=== PATIENT | female | born 1945 | race Hispanic/Latino ===

== ENCOUNTER → 2018-01-05 | Outpatient (CLI) | payer OTHER | END | disposition home or self-care (01) | LOC: RAH 09:48 | PROVIDERS: ATTEND Family Medicine | DX: Z12.31 Encounter for screening mammogram for malignant neoplasm of breast (principal) | CPT/HCPCS: 77067 ==

== ENCOUNTER → 2018-03-13 | Outpatient (CLI) | payer OTHER | END | disposition home or self-care (01) | LOC: RAH 09:27 | PROVIDERS: ATTEND Family Medicine | DX: N63.20 Unspecified lump in the left breast, unspecified quadrant (principal); R92.8 Other abnormal and inconclusive findings on diagnostic imaging of breast | CPT/HCPCS: 76641; 77065 ==

== ENCOUNTER → 2018-10-01 | Outpatient (CLI) | payer OTHER | END | disposition home or self-care (01) | LOC: SHCH 14:15 | PROVIDERS: ATTEND Internal Medicine Cardiovascular Disease | DX: I25.10 Atherosclerotic heart disease of native coronary artery without angina pectoris (principal) | CPT/HCPCS: 93880 ==

== ENCOUNTER → 2019-03-18 | Outpatient (CLI) | payer OTHER | END | disposition home or self-care (01) | LOC: EDBD 10:18 → RAH 10:18 | PROVIDERS: ATTEND Family Medicine | DX: Z12.31 Encounter for screening mammogram for malignant neoplasm of breast (principal) | CPT/HCPCS: 77067 ==

== ENCOUNTER → 2019-08-21 | Outpatient (CLI) | payer OTHER | END | disposition home or self-care (01) | LOC: EDBD 08-13 14:00 → RAH 12:52 | PROVIDERS: ATTEND Family Medicine | DX: R94.39 Abnormal result of other cardiovascular function study (principal) | CPT/HCPCS: 93925 ==

== ENCOUNTER 2020-01-31 20:10 | Emergency (ER) | payer OTHER ==
[2020-01-31 20:36] LABS: BASOPHILS % (AUTO) 0.3 % (0.0-5.0); EOSINOPHILS % (AUTO) 0.6 % (0.0-8.0); HEMATOCRIT 35.8 % (36-48); LYMPHOCYTES % (AUTO) 32.2 % (21.0-51.0); MEAN CORPUSCULAR HEMOGLOBIN 28.9 pg (27.0-33.0); MEAN CORPUSCULAR HGB CONC 32.4 g/dL (32.0-36.0); MEAN CORPUSCULAR VOLUME 89.3 fL (79-99); NEUTROPHILS % (AUTO) 56.6 % (40.0-77.0); PLATELET COUNT (AUTO) 287 K/uL (130-400); RED BLOOD CELL COUNT(AUTO) 4.01 MIL/uL (4.00-5.50); RED CELL DISTRIBUTION WIDTH 13.2 % (11.0-15.5); WHITE BLOOD COUNT (AUTO) 6.5 K/uL (4.8-10.8)
[2020-01-31 20:58] LABS: CREATININE 1.4 mg/dL (0.5-1.5); POTASSIUM 3.5 mmol/L (3.5-5.1)
[2020-01-31 21:05] LABS: ALBUMIN 4.3 g/dL (3.5-5.0); BILIRUBIN,TOTAL 0.3 mg/dL (0.2-1.0); TOTAL PROTEIN, SERUM 8.7 g/dL (6.0-8.3)
[2020-01-31] MEDS ORDERED: LORAZEPAM 2 MG/ML 1 ML VIAL ONE (22:04)
== END 2020-01-31 23:46 | disposition home or self-care (01) ==
LOC: EDH 20:10
DX: I10 Essential (primary) hypertension (principal); R53.1 Weakness; E11.9 Type 2 diabetes mellitus without complications; I48.91 Unspecified atrial fibrillation; F32.9 Major depressive disorder, single episode, unspecified; Z95.1 Presence of aortocoronary bypass graft; Z79.899 Other long term (current) drug therapy; Z98.890 Other specified postprocedural states
CPT/HCPCS: 36415; 71045; 80053; 82550; 82948; 84484; 85025; 93005; 96374; 99285; J2060

== ENCOUNTER 2020-02-07 02:42 | Emergency (ER) | payer OTHER ==
[2020-02-07] MEDS ORDERED: METOPROLOL TARTRATE 25 MG TAB ONE (03:35)
[2020-02-07] MEDS ORDERED: SODIUM CHLORIDE 0.9% 500ML 500 ML IV ONE (03:36)
[2020-02-07 04:14] LABS: ALBUMIN 4.1 g/dL (3.5-5.0); BASOPHILS % (AUTO) 0.3 % (0.0-5.0); BILIRUBIN,TOTAL 0.4 mg/dL (0.2-1.0); CREATININE 1.1 mg/dL (0.5-1.5); EOSINOPHILS % (AUTO) 0.7 % (0.0-8.0); HEMATOCRIT 36.9 % (36-48); MEAN CORPUSCULAR HEMOGLOBIN 29.6 pg (27.0-33.0); MEAN CORPUSCULAR HGB CONC 33.6 g/dL (32.0-36.0); MEAN CORPUSCULAR VOLUME 88.1 fL (79-99); MONOCYTES % (AUTO) 7.4 % (3.0-13.0); NEUTROPHILS % (AUTO) 61.5 % (40.0-77.0); PLATELET COUNT (AUTO) 305 K/uL (130-400); POTASSIUM 3.8 mmol/L (3.5-5.1); RED BLOOD CELL COUNT(AUTO) 4.19 MIL/uL (4.00-5.50); RED CELL DISTRIBUTION WIDTH 13.2 % (11.0-15.5); TOTAL PROTEIN, SERUM 8.6 g/dL (6.0-8.3)
[2020-02-07 04:15] LABS: APPEARANCE,URINE Clear (CLEAR); B-TYPE NATRIURETIC PEPTIDE 184 pg/mL (0-100); BILIRUBIN,URINE Negative (NEGATIVE); COLOR,URINE Yellow (YELLOW); GLUCOSE, URINE (UA) Negative (NEGATIVE); KETONES,URINE Negative (NEGATIVE); LEUKOCYTE ESTERASE ,URINE Negative (NEGATIVE); MAGNESIUM 2.5 mg/dL (1.80-2.40); NITRATE,URINE Negative (NEGATIVE); OCCULT BLOOD,URINE Negative (NEGATIVE); PH,URINE 6.5 (5.0-8.0); PROTEIN,URINE Negative (NEGATIVE); THYROID STIMULATING HORMONE 3.84 uIU/mL (0.36-3.74); UROBILINOGEN,URINE 0.2 mg/dL (0.2-1.0)
[2020-02-07 04:28] LABS: PARTIAL THROMBOPLASTIN TIME 49.5 SEC (26.3-35.5)
[2020-02-07 04:30] LABS: INR 4.26 (0.85-1.15); PROTHROMBIN TIME 41.9 SEC (9.6-11.6)
== END 2020-02-07 05:11 | disposition home or self-care (01) ==
LOC: EDH 02:42
DX: R00.2 Palpitations (principal); I48.91 Unspecified atrial fibrillation; F32.9 Major depressive disorder, single episode, unspecified; I10 Essential (primary) hypertension; E11.9 Type 2 diabetes mellitus without complications; I25.810 Atherosclerosis of coronary artery bypass graft(s) without angina pectoris; E78.00 Pure hypercholesterolemia, unspecified; I25.2 Old myocardial infarction
CPT/HCPCS: 36415; 71045; 80053; 81003; 82550; 83735; 83880; 84443; 84484; 85025; 85610; 85730; 93005; 99285; J7040

== ENCOUNTER → 2020-02-27 | Outpatient (CLI) | payer OTHER | END | disposition home or self-care (01) | LOC: SHCH 10:26 | PROVIDERS: ATTEND Internal Medicine Cardiovascular Disease | DX: I65.23 Occlusion and stenosis of bilateral carotid arteries (principal) | CPT/HCPCS: 93880 ==

== ENCOUNTER → 2020-08-17 | Outpatient (CLI) | payer OTHER | END | disposition home or self-care (01) | LOC: RAH 12:14 | PROVIDERS: ATTEND Family Medicine | DX: Z12.31 Encounter for screening mammogram for malignant neoplasm of breast (principal) | CPT/HCPCS: 77067 ==

== ENCOUNTER → 2021-02-11 | Outpatient (CLI) | payer OTHER | END | disposition home or self-care (01) | LOC: SHCH 09:11 | PROVIDERS: ATTEND Internal Medicine Cardiovascular Disease | DX: I25.10 Atherosclerotic heart disease of native coronary artery without angina pectoris (principal) | CPT/HCPCS: 93880 ==

== ENCOUNTER 2021-09-12 23:59 | Observation (INO) | payer OTHER ==
[~2021-09-12] VITALS: Ht 157.5 cm; Wt 52.4 kg
[2021-09-13] MEDS ORDERED: ASPIRIN 325MG TAB ONE (00:48)
[2021-09-13] MEDS ORDERED: LORAZEPAM 2 MG/ML 1 ML VIAL ONE (00:49)
[2021-09-13] MEDS ORDERED: ASPIRIN 325MG TAB PO ONE (01:00)
[2021-09-13] MEDS ORDERED: LORAZEPAM 2 MG/ML 1 ML VIAL IVP ONE (01:00)
[2021-09-13 01:18] LABS: BASOPHILS % (AUTO) 0.4 % (0.0-5.0); EOSINOPHILS % (AUTO) 0.8 % (0.0-8.0); HEMATOCRIT 35.9 % (36-48); LYMPHOCYTES % (AUTO) 31.4 % (21.0-51.0); MEAN CORPUSCULAR HEMOGLOBIN 30.4 pg (27.0-33.0); MEAN CORPUSCULAR HGB CONC 33.7 g/dL (32.0-36.0); MEAN CORPUSCULAR VOLUME 90.2 fL (79-99); MONOCYTES % (AUTO) 10.4 % (3.0-13.0); NEUTROPHILS % (AUTO) 56.7 % (40.0-77.0); PLATELET COUNT (AUTO) 211 K/uL (130-400); RED BLOOD CELL COUNT(AUTO) 3.98 MIL/uL (4.00-5.50); RED CELL DISTRIBUTION WIDTH 12.9 % (11.0-15.5); WHITE BLOOD COUNT (AUTO) 7.3 K/uL (4.8-10.8)
[2021-09-13 01:37] LABS: CREATININE 1.6 mg/dL (0.5-1.5); POTASSIUM 3.4 mmol/L (3.5-5.1)
[2021-09-13 01:47] LABS: ALBUMIN 4.5 g/dL (3.5-5.0); BILIRUBIN,TOTAL 0.5 mg/dL (0.2-1.0); TOTAL PROTEIN, SERUM 8.5 g/dL (6.0-8.3)
[2021-09-13 02:09] LABS: B-TYPE NATRIURETIC PEPTIDE 167 pg/mL (0-100)
[2021-09-13] MEDS ORDERED: LACTULOSE 20 GM/30 ML UDCUP PO PRN (04:00)
[2021-09-13] MEDS ORDERED: POTASSIUM CHLORIDE 20MEQ/100ML 100 ML IV PRN (04:00)
[2021-09-13] MEDS ORDERED: MORPHINE 2 MG SYG IV PRN (04:00)
[2021-09-13] MEDS ORDERED: KCL 20 MEQ ERTAB PO PRN (04:00)
[2021-09-13] MEDS ORDERED: LIDOCAINE HCL-MPF 1% 2ML VIAL IV PRN (04:00)
[2021-09-13] MEDS ORDERED: HEPARIN 25,000 UNITS/250ML D5W 250 ML IV SCH (04:00)
[2021-09-13] MEDS ORDERED: ONDANSETRON 4MG INJ IV PRN (04:00)
[2021-09-13] MEDS ORDERED: POTASSIUM CHLORIDE 10% ELIXIR 20 MEQ/15 ML UDCUP PO PRN (04:00)
[2021-09-13] MEDS ORDERED: HYDRALAZINE 20MG/ML VIAL IV PRN (04:00)
[2021-09-13] MEDS ORDERED: ACETAMINOPHEN 325 MG TAB PO PRN (04:00)
[2021-09-13] MEDS: 0.9%NACL 1000ML 1,000 ML IV SCH ×2 (05:10→13:59)
[2021-09-13] MEDS: NITROGLYCERIN 1GM OINT 1 INCH/1GM TD SCH ×3 (05:10→21:51)
[2021-09-13 05:18] LABS: APPEARANCE,URINE Clear (CLEAR); BILIRUBIN,URINE Negative (NEGATIVE); COLOR,URINE Yellow (YELLOW); GLUCOSE, URINE (UA) Negative (NEGATIVE); KETONES,URINE Trace mg/dL (NEGATIVE); LEUKOCYTE ESTERASE ,URINE Negative (NEGATIVE); NITRATE,URINE Negative (NEGATIVE); OCCULT BLOOD,URINE Negative (NEGATIVE); PROTEIN,URINE Negative (NEGATIVE); UROBILINOGEN,URINE 0.2 mg/dL (0.2-1.0)
[2021-09-13 05:21] LABS: INR 2.56 (0.85-1.15); PROTHROMBIN TIME 25.6 SEC (9.6-11.6)
[2021-09-13 05:24] LABS: AMPHET/METH SCREEN,URINE NEGATIVE (NEGATIVE); BARBITURATE SCREEN, URINE NEGATIVE (NEGATIVE); CANNABINOID SCREEN,URINE NEGATIVE (NEGATIVE); COCAINE SCREEN,URINE NEGATIVE (NEGATIVE); OPIATE SCREEN,URINE NEGATIVE (NEGATIVE); PHENCYCLIDINE SCREEN,URINE NEGATIVE (NEGATIVE)
[2021-09-13 05:24] LABS: HEMOGLOBIN A1C 6.8 % (4.0-6.0)
[2021-09-13 05:48] LABS: % IRON SATURATION 22.2 % (22-44)
[2021-09-13 06:00] LABS: PHOSPHORUS 1.7 mg/dL (2.5-4.9); THYROID STIMULATING HORMONE 6.2 uIU/mL (0.36-3.74)
[2021-09-13 06:33] LABS: BENZODIAZEPINES SCREEN,URINE NEGATIVE (NEGATIVE)
[2021-09-13] MEDS: INSULIN HUMULIN R 100 UNIT/ML 3ML SQ SCH ×4 (07:30→21:00)
[2021-09-13 08:19] LABS: ALBUMIN 3.6 g/dL (3.5-5.0); BILIRUBIN,TOTAL 0.6 mg/dL (0.2-1.0); TOTAL PROTEIN, SERUM 8.1 g/dL (6.0-8.3)
[2021-09-13] MEDS: FAMOTIDINE 20MG TAB PO SCH (08:19)
[2021-09-13] MEDS ORDERED: CLONAZEPAM 0.5 MG TABLET PO PRN (08:30)
[2021-09-13] MEDS ORDERED: ASPIRIN 325MG TAB PO SCH (09:00)
[2021-09-13 09:03] LABS: POTASSIUM 3.6 mmol/L (3.5-5.1)
[2021-09-13 09:16] LABS: ALBUMIN 4.2 g/dL (3.5-5.0); BILIRUBIN,TOTAL 0.5 mg/dL (0.2-1.0); CREATININE 1.6 mg/dL (0.5-1.5); POTASSIUM 3.6 mmol/L (3.5-5.1); TOTAL PROTEIN, SERUM 8.8 g/dL (6.0-8.3)
[2021-09-13 12:54] LABS: INR 2.86 (0.85-1.15); PROTHROMBIN TIME 28.3 SEC (9.6-11.6)
[2021-09-13 13:11] LABS: PARTIAL THROMBOPLASTIN TIME > 139.0 SEC (26.3-35.5)
[2021-09-13] MEDS ORDERED: WARF-57 PO (15:18)
[2021-09-13] MEDS ORDERED: NIFE90TA65 PO (15:18)
[2021-09-13] MEDS ORDERED: CLON1TAB12 PO (15:23)
[2021-09-13] MEDS ORDERED: HYDR-4154 PO (15:23)
[2021-09-13 19:22] LABS: INR 2.83 (0.85-1.15); PROTHROMBIN TIME 28.1 SEC (9.6-11.6)
[2021-09-13 19:44] LABS: PARTIAL THROMBOPLASTIN TIME > 139.0 SEC (26.3-35.5)
[2021-09-13] MEDS: HYDRALAZINE 25MG TABLET PO SCH (19:47)
[2021-09-13] MEDS ORDERED: NIFEDIPINE ER 30 MG TAB PO ONE (19:56)
[2021-09-13] MEDS: NIFEDIPINE ER 30 MG TAB PO SCH (20:02)
[2021-09-13] MEDS ORDERED: HEPARIN 5,000 UNIT VIAL SQ SCH (21:00)
[2021-09-13 23:42] VITALS: BP 174/79
[2021-09-14] MEDS ORDERED: CLONIDINE HCL 0.1 MG TABLET PO PRN
[2021-09-14] MEDS: 0.9%NACL 1000ML 1,000 ML IV SCH ×2 (00:11→10:00)
[2021-09-14 04:24] VITALS: BP 149/76
[2021-09-14] MEDS: NITROGLYCERIN 1GM OINT 1 INCH/1GM TD SCH ×2 (04:26→13:59)
[2021-09-14 04:39] LABS: BASOPHILS % (AUTO) 0.4 % (0.0-5.0); HEMATOCRIT 33.9 % (36-48); LYMPHOCYTES % (AUTO) 20.5 % (21.0-51.0); MEAN CORPUSCULAR HEMOGLOBIN 29.7 pg (27.0-33.0); MEAN CORPUSCULAR HGB CONC 32.7 g/dL (32.0-36.0); MEAN CORPUSCULAR VOLUME 90.6 fL (79-99); MONOCYTES % (AUTO) 9.4 % (3.0-13.0); NEUTROPHILS % (AUTO) 68.5 % (40.0-77.0); PLATELET COUNT (AUTO) 191 K/uL (130-400); RED BLOOD CELL COUNT(AUTO) 3.74 MIL/uL (4.00-5.50); WHITE BLOOD COUNT (AUTO) 5.1 K/uL (4.8-10.8)
[2021-09-14 05:07] LABS: INR 2.59 (0.85-1.15); PROTHROMBIN TIME 25.9 SEC (9.6-11.6)
[2021-09-14 05:08] LABS: PARTIAL THROMBOPLASTIN TIME 53.3 SEC (26.3-35.5)
[2021-09-14 05:29] LABS: ALBUMIN 3.4 g/dL (3.5-5.0); BILIRUBIN,TOTAL 0.4 mg/dL (0.2-1.0); CREATININE 1.1 mg/dL (0.5-1.5); MAGNESIUM 1.9 mg/dL (1.80-2.40); POTASSIUM 3.7 mmol/L (3.5-5.1); TOTAL PROTEIN, SERUM 6.9 g/dL (6.0-8.3)
[2021-09-14] MEDS: INSULIN HUMULIN R 100 UNIT/ML 3ML SQ SCH ×2 (06:20→14:00)
[2021-09-14 08:00] VITALS: BP 133/74
[2021-09-14] MEDS: FAMOTIDINE 20MG TAB PO SCH (08:24)
[2021-09-14] MEDS: HYDRALAZINE 25MG TABLET PO SCH (08:24)
[2021-09-14 10:16] LABS: INR 2.5 (0.85-1.15); PROTHROMBIN TIME 25.1 SEC (9.6-11.6)
[2021-09-14 10:17] LABS: PARTIAL THROMBOPLASTIN TIME 51.3 SEC (26.3-35.5)
[2021-09-14] MEDS: NIFEDIPINE ER 30 MG TAB PO SCH (13:40)
[2021-09-14] MEDS ORDERED: WARFARIN SODIUM 5 MG TAB PO SCH (16:00)
[2021-09-14] MEDS ORDERED: FLU VACC QS2021-22(6MOS UP)/PF 60 MCG/0.5 ML ML IM ONE (16:00)
[2021-09-14] MEDS ORDERED: CLONAZEPAM 1MG TAB PO SCH (17:00)
== END 2021-09-14 17:15 | disposition home or self-care (01) ==
LOC: EDBD → EDH 23:59 → EDHIP 09-13 03:31 → 3CH 09-13 23:18
PROVIDERS: ADMIT Internal Medicine Pulmonary Disease; ATTEND Internal Medicine Pulmonary Disease
DX: F41.9 Anxiety disorder, unspecified (principal); Z20.822 Contact with and (suspected) exposure to COVID-19; I21.4 Non-ST elevation (NSTEMI) myocardial infarction; I12.9 Hypertensive chronic kidney disease with stage 1 through stage 4 chronic kidney disease, or unspecified chronic kidney disease; E11.22 Type 2 diabetes mellitus with diabetic chronic kidney disease; N17.9 Acute kidney failure, unspecified; N18.30 Chronic kidney disease, stage 3 unspecified; I25.10 Atherosclerotic heart disease of native coronary artery without angina pectoris; I48.0 Paroxysmal atrial fibrillation; E78.5 Hyperlipidemia, unspecified; E03.9 Hypothyroidism, unspecified; E78.00 Pure hypercholesterolemia, unspecified; R79.89 Other specified abnormal findings of blood chemistry; E11.65 Type 2 diabetes mellitus with hyperglycemia; I25.2 Old myocardial infarction; I70.1 Atherosclerosis of renal artery; J44.9 Chronic obstructive pulmonary disease, unspecified; Z79.01 Long term (current) use of anticoagulants; Z79.899 Other long term (current) drug therapy; Z86.73 Personal history of transient ischemic attack (TIA), and cerebral infarction without residual deficits; Z95.1 Presence of aortocoronary bypass graft; Z23 Encounter for immunization
CPT/HCPCS: 36415 ×2; 71045; 76770; 80053 ×4; 80061; 80305; 81003; 82550 ×3; 82948 ×4; 83036; 83540; 83550; 83690; 83735; 83874 ×3; 83880; 84100; 84443; 84484 ×3; 85025 ×2; 85378; 85610 ×5; 85730 ×4; 87635; 90471; 93005 ×3; 96361 ×2; 96365; 96372; 96375; 99285; C9803; G0378 ×37; J0360; J1644; J1815; J2060; J7030; Q2035

== ENCOUNTER → 2022-03-23 | Outpatient (CLI) | payer OTHER ==
[~2022-03-23] MED LIST: CLON1TAB12 PO; HYDR-4154 PO; NIFE90TA65 PO; WARF-57 PO
== END | disposition home or self-care (01) ==
LOC: EDBD → SHCH 10:03
PROVIDERS: ATTEND Internal Medicine Cardiovascular Disease
DX: I65.23 Occlusion and stenosis of bilateral carotid arteries (principal)
CPT/HCPCS: 93880

== ENCOUNTER 2022-06-11 22:40 | Observation (INO) | payer OTHER ==
[~2022-06-11] VITALS: Ht 162.6 cm; Wt 53.9 kg
[2022-06-11] MEDS ORDERED: ACETAMINOPHEN 500 MG TABLET PO ONE (23:30)
[2022-06-11] MEDS ORDERED: 0.9%NACL 1000ML 1,000 ML IV ONE (23:30)
[2022-06-11 23:40] LABS: BASOPHILS % (AUTO) 0.1 % (0.0-5.0); HEMATOCRIT 36.8 % (36-48); LYMPHOCYTES % (AUTO) 6.9 % (21.0-51.0); MEAN CORPUSCULAR HGB CONC 32.9 g/dL (32.0-36.0); MEAN CORPUSCULAR VOLUME 91.3 fL (79-99); MONOCYTES % (AUTO) 6.8 % (3.0-13.0); PLATELET COUNT (AUTO) 161 K/uL (130-400); RED BLOOD CELL COUNT(AUTO) 4.03 MIL/uL (4.00-5.50); RED CELL DISTRIBUTION WIDTH 13.5 % (11.0-15.5); WHITE BLOOD COUNT (AUTO) 8.7 K/uL (4.8-10.8)
[2022-06-11 23:45] LABS: ABG HCO3 26.9 mmol/L (21.0-28.0); ABG OXYGEN SATURATION 90.8 % (95.0-99.0); ABG PCO2 39 mmHg (32-45)
[2022-06-12] MEDS ORDERED: DEXAMETHASONE SOD PHOSPHATE 4 MG/ML 1ML VIAL IVP ONE
[2022-06-12] MEDS ORDERED: CEFTRIAXONE 1G VIAL IVP ONE
[2022-06-12] MEDS ORDERED: DOXYCYCLINE HYCLATE 100 MG TABLET PO SCH
[2022-06-12 00:04] LABS: POTASSIUM 3.6 mmol/L (3.5-5.1)
[2022-06-12 00:08] LABS: ALBUMIN 4.1 g/dL (3.5-5.0); TOTAL PROTEIN, SERUM 8.1 g/dL (6.0-8.3)
[2022-06-12] MEDS ORDERED: HYDROCODONE/ACETAMINOPHEN 5/325 MG TAB PO PRN (01:00)
[2022-06-12] MEDS ORDERED: LABETALOL 20MG SYG IV PRN (01:00)
[2022-06-12] MEDS ORDERED: TEMAZEPAM 15 MG CAPSULE PO PRN (01:00)
[2022-06-12] MEDS ORDERED: ONDANSETRON 4MG INJ IVP PRN (01:00)
[2022-06-12] MEDS ORDERED: CLONIDINE HCL 0.1 MG TABLET PO PRN (01:00)
[2022-06-12] MEDS ORDERED: ERGOCALCIFEROL (VITAMIN D2) 50,000 UNIT CAPSULE PO ONE (01:00)
[2022-06-12] MEDS ORDERED: ACETAMINOPHEN 325 MG TAB PO PRN (01:00)
[2022-06-12] MEDS: DEXAMETHASONE SOD PHOSPHATE 4 MG/ML 1ML VIAL IVP SCH (01:00)
[2022-06-12] MEDS ORDERED: 0.9%NACL 1000ML 1,000 ML IV SCH (01:00)
[2022-06-12] MEDS ORDERED: LACTULOSE 20 GM/30 ML UDCUP PO PRN (01:00)
[2022-06-12] MEDS ORDERED: HYDRALAZINE 20MG/ML VIAL IV PRN (01:00)
[2022-06-12] MEDS ORDERED: ACETAMINOPHEN 325 MG TAB ONE (01:11)
[2022-06-12 05:01] VITALS: BP 124/59
[2022-06-12] MEDS ORDERED: CLON1TAB12 PO (06:48)
[2022-06-12] MEDS ORDERED: METF-444 PO (06:48)
[2022-06-12] MEDS ORDERED: AZIT250T9 PO (06:48)
[2022-06-12 06:57] VITALS: BP 107/43
[2022-06-12] MEDS: INSULIN HUMULIN R 100 UNIT/ML 3ML SQ SCH ×4 (07:30→21:09)
[2022-06-12] MEDS ORDERED: ENOXAPARIN SODIUM 40 MG/0.4 ML SYRINGE SQ SCH (09:00)
[2022-06-12] MEDS ORDERED: AZITHROMYCIN 500MG+NS 250ML IV SCH (09:00)
[2022-06-12] MEDS: ZINC SULFATE 220 CAPSULE PO SCH (09:26)
[2022-06-12] MEDS: ASCORBIC ACID 500 MG TAB PO SCH (09:26)
[2022-06-12] MEDS: CEFTRIAXONE 1G VIAL IVP SCH (09:26)
[2022-06-12] MEDS: AZITHROMYCIN 500MG+NS 250ML 250 ML IV SCH (09:26)
[2022-06-12 11:50] VITALS: BP 110/80
[2022-06-12 16:00] VITALS: BP 102/78
[2022-06-12] MEDS ORDERED: PHARMACY COMMUNICATION MISC SCH (16:30)
[2022-06-12 17:09] LABS: INR 2.24 (0.85-1.15); PROTHROMBIN TIME 23.3 SEC (9.6-11.6)
[2022-06-12 17:10] LABS: PARTIAL THROMBOPLASTIN TIME 82.1 SEC (26.3-35.5)
[2022-06-12] MEDS: BARICITINIB (EUA) 2 MG TABLET PO SCH (17:12)
[2022-06-12 17:33] LABS: CRP QUANTITATIVE 111.6 mg/L (0.00-9.0); THYROID STIMULATING HORMONE 0.58 uIU/mL (0.36-3.74)
[2022-06-12 20:00] VITALS: BP 142/76
[2022-06-12] MEDS: CLONAZEPAM 1MG TAB PO SCH (21:04)
[2022-06-12] MEDS: ENOXAPARIN SODIUM 60 MG/0.6 ML SQ SCH (21:06)
[2022-06-12 22:32] LABS: APPEARANCE,URINE CLEAR (CLEAR); BILIRUBIN,URINE NEGATIVE (NEGATIVE); COLOR,URINE YELLOW (YELLOW); GLUCOSE, URINE (UA) 500 mg/dL (NEGATIVE); KETONES,URINE NEGATIVE (NEGATIVE); LEUKOCYTE ESTERASE ,URINE NEGATIVE (NEGATIVE); NITRATE,URINE NEGATIVE (NEGATIVE); OCCULT BLOOD,URINE NEGATIVE (NEGATIVE); PROTEIN,URINE NEGATIVE (NEGATIVE); UROBILINOGEN,URINE 0.2 mg/dL (0.2-1.0)
[2022-06-12 22:47] LABS: BACTERIA,URINE None Seen /HPF (None Seen); RBC,URINE None Seen /HPF (0-1); SQUAMOUS EPITHELIAL CELL,UR Rare /HPF (0-2); WBC,URINE None Seen /HPF (0-1); YEAST,URINE BUDDING None Seen /HPF (None Seen)
[2022-06-12 23:49] VITALS: BP 131/67
[2022-06-13] MEDS: DEXAMETHASONE SOD PHOSPHATE 4 MG/ML 1ML VIAL IVP SCH (00:16)
[2022-06-13 03:40] LABS: BASOPHILS % (AUTO) 0.1 % (0.0-5.0); HEMATOCRIT 31.3 % (36-48); LYMPHOCYTES % (AUTO) 8.8 % (21.0-51.0); MEAN CORPUSCULAR HEMOGLOBIN 30.1 pg (27.0-33.0); MEAN CORPUSCULAR HGB CONC 33.2 g/dL (32.0-36.0); MEAN CORPUSCULAR VOLUME 90.5 fL (79-99); MONOCYTES % (AUTO) 2.8 % (3.0-13.0); NEUTROPHILS % (AUTO) 87.7 % (40.0-77.0); PLATELET COUNT (AUTO) 155 K/uL (130-400); RED BLOOD CELL COUNT(AUTO) 3.46 MIL/uL (4.00-5.50); RED CELL DISTRIBUTION WIDTH 13.3 % (11.0-15.5); WHITE BLOOD COUNT (AUTO) 8.3 K/uL (4.8-10.8)
[2022-06-13 03:53] LABS: CREATININE 0.8 mg/dL (0.5-1.5); POTASSIUM 3.7 mmol/L (3.5-5.1); TOTAL PROTEIN, SERUM 6.7 g/dL (6.0-8.3)
[2022-06-13 04:00] VITALS: BP 148/69
[2022-06-13] MEDS: INSULIN HUMULIN R 100 UNIT/ML 3ML SQ SCH ×3 (07:28→16:45)
[2022-06-13 08:00] VITALS: BP 130/81
[2022-06-13] MEDS: CLONAZEPAM 1MG TAB PO SCH (08:57)
[2022-06-13] MEDS: CEFTRIAXONE 1G VIAL IVP SCH (08:57)
[2022-06-13] MEDS: BARICITINIB (EUA) 2 MG TABLET PO SCH (08:57)
[2022-06-13] MEDS: AZITHROMYCIN 500MG+NS 250ML 250 ML IV SCH (08:58)
[2022-06-13] MEDS: ASCORBIC ACID 500 MG TAB PO SCH (08:58)
[2022-06-13] MEDS: ENOXAPARIN SODIUM 60 MG/0.6 ML SQ SCH (08:58)
[2022-06-13] MEDS: ZINC SULFATE 220 CAPSULE PO SCH (08:58)
[2022-06-13] MEDS ORDERED: NIFEDIPINE ER 30 MG TAB PO SCH (09:00)
[2022-06-13] MEDS ORDERED: PANTOPRAZOLE 40 MG TAB DR PO SCH (09:00)
[2022-06-13 11:12] LABS: HEMOGLOBIN A1C 6.8 % (4.0-6.0)
[2022-06-13 12:00] VITALS: BP 124/75
[2022-06-13 16:00] VITALS: BP 103/70
[2022-06-13] MEDS ORDERED: WARFARIN SODIUM 5 MG TAB PO SCH (16:00)
[2022-06-13] MEDS ORDERED: AZIT500T4 PO (16:35)
[2022-06-13] MEDS ORDERED: DEXA6TAB PO (16:35)
== END 2022-06-13 16:20 | disposition home or self-care (01) ==
LOC: EDH 22:40 → EDHIP 06-12 01:00 → 2AH 06-12 05:00
PROVIDERS: ADMIT Internal Medicine Pulmonary Disease; ATTEND Internal Medicine Pulmonary Disease
DX: U07.1 COVID-19 (principal); J12.82 Pneumonia due to coronavirus disease 2019; J96.01 Acute respiratory failure with hypoxia; I48.0 Paroxysmal atrial fibrillation; E11.9 Type 2 diabetes mellitus without complications; F41.9 Anxiety disorder, unspecified; I65.29 Occlusion and stenosis of unspecified carotid artery; E78.5 Hyperlipidemia, unspecified; I10 Essential (primary) hypertension; Z79.01 Long term (current) use of anticoagulants; Z95.1 Presence of aortocoronary bypass graft; Z79.899 Other long term (current) drug therapy
CPT/HCPCS: 36415; 36600; 71045; 80053; 81001; 82435; 82728; 82803; 82947; 82948; 83036; 83605; 83615; 83880; 84132; 84145; 84295; 84443; 84484; 85018; 85025; 85378; 85610; 85730; 86140; 86850; 86900; 86901; 87040; 87635; 87804; 93005; 94760; 96361; 96365; 96366; 96372; 96375; 96376; 99291; G0378; J0456; J0696; J1100; J1650; J1815; J7030

== ENCOUNTER 2022-06-28 17:24 | Inpatient (IN) | payer OTHER ==
[~2022-06-28] VITALS: Ht 154.9 cm; Wt 50.4 kg
[~2022-06-28 17:24] MED LIST changes: +AZIT500T4 PO; +DEXA6TAB PO; +METF-444 PO
[2022-06-28] MEDS ORDERED: DILTIAZEM 25MG INJ IVP STA (18:09)
[2022-06-28 18:14] LABS: BASOPHILS % (AUTO) 0.1 % (0.0-5.0); HEMATOCRIT 33.9 % (36-48); LYMPHOCYTES % (AUTO) 8.5 % (21.0-51.0); MEAN CORPUSCULAR HEMOGLOBIN 30.2 pg (27.0-33.0); MEAN CORPUSCULAR HGB CONC 33.6 g/dL (32.0-36.0); MEAN CORPUSCULAR VOLUME 89.7 fL (79-99); MONOCYTES % (AUTO) 7.3 % (3.0-13.0); NEUTROPHILS % (AUTO) 83.4 % (40.0-77.0); PLATELET COUNT (AUTO) 208 K/uL (130-400); RED BLOOD CELL COUNT(AUTO) 3.78 MIL/uL (4.00-5.50); RED CELL DISTRIBUTION WIDTH 13.8 % (11.0-15.5)
[2022-06-28 18:21] LABS: CREATININE 1.6 mg/dL (0.5-1.5); POTASSIUM 3.3 mmol/L (3.5-5.1)
[2022-06-28 18:30] LABS: APPEARANCE,URINE CLEAR (CLEAR); BILIRUBIN,URINE NEGATIVE (NEGATIVE); COLOR,URINE YELLOW (YELLOW); GLUCOSE, URINE (UA) 500 mg/dL (NEGATIVE); KETONES,URINE NEGATIVE (NEGATIVE); LEUKOCYTE ESTERASE ,URINE NEGATIVE (NEGATIVE); NITRATE,URINE POSITIVE (NEGATIVE); OCCULT BLOOD,URINE NEGATIVE (NEGATIVE); PROTEIN,URINE 100 mg/dL (NEGATIVE); UROBILINOGEN,URINE 0.2 mg/dL (0.2-1.0)
[2022-06-28 18:31] LABS: ALBUMIN 3.8 g/dL (3.5-5.0); TOTAL PROTEIN, SERUM 7.7 g/dL (6.0-8.3)
[2022-06-28 19:21] LABS: BACTERIA,URINE Few /HPF (None Seen)
[2022-06-28 19:22] LABS: MUCUS,URINE Rare LPF (None Seen); SQUAMOUS EPITHELIAL CELL,UR Rare /HPF (0-2)
[2022-06-28] MEDS ORDERED: LACTULOSE 20 GM/30 ML UDCUP PO PRN (21:00)
[2022-06-28] MEDS ORDERED: ONDANSETRON 4MG INJ IVP PRN (21:00)
[2022-06-28] MEDS ORDERED: CEFTRIAXONE 1G VIAL IVP SCH (21:00)
[2022-06-28] MEDS ORDERED: ACETAMINOPHEN 650 MG SUPPOSITORY RC PRN (21:00)
[2022-06-28] MEDS ORDERED: ACETAMINOPHEN 325 MG TAB PO PRN (21:00)
[2022-06-28] MEDS ORDERED: MORPHINE 2 MG SYG IVP PRN (21:00)
[2022-06-28] MEDS ORDERED: HYDROCODONE/ACETAMINOPHEN 5/325 MG TAB PO PRN (21:00)
[2022-06-28] MEDS ORDERED: ACETAMINOPHEN 650 MG SUPPOSITORY RC ONE ×2 (21:04→21:30)
[2022-06-28] MEDS ORDERED: LEVETIRACETAM 500 MG/5 ML SD VIAL IV ONE (21:06)
[2022-06-28] MEDS ORDERED: LEVETIRACETAM 500 MG/5 ML SD VIAL IV SCH (21:30)
[2022-06-28] MEDS ORDERED: DILTIAZEM 25MG INJ IVP ONE (21:30)
[2022-06-28] MEDS ORDERED: LABETALOL 20MG SYG IV ONE ×2 (21:41→22:00)
[2022-06-28] MEDS ORDERED: LOSA100T58 PO (22:29)
[2022-06-28] MEDS ORDERED: ATOR20TA65 PO (22:30)
[2022-06-28] MEDS ORDERED: DILTIAZEM 125MG+100 ML NS 125 ML IV PRN (22:30)
[2022-06-28 22:54] LABS: GLUCOSE, CSF 93 mg/dL (40-70); TOTAL PROTEIN, CSF 50 mg/dL (15-45)
[2022-06-28] MEDS: INSULIN HUMULIN R 100 UNIT/ML 3ML SQ SCH (23:00)
[2022-06-28 23:02] LABS: APPEARANCE,CSF CLEAR (CLEAR); CSF TUBE NUMBER 1
[2022-06-28 23:03] LABS: COLOR,CSF COLORLESS (COLORLESS); RED BLOOD CELL1,CSF 2 CMM (0-0); WHITE BLOOD CELL1,CSF 0 CMM (0-5)
[2022-06-28 23:04] LABS: APPEARANCE2,CSF CLEAR (CLEAR); COLOR2,CSF COLORLESS (COLORLESS); CSF 2ND TUBE NUMBER 3
[2022-06-28 23:45] VITALS: BP 176/102
[2022-06-28 23:47] VITALS: BP 169/108
[2022-06-29 03:15] VITALS: BP 131/87
[2022-06-29 04:00] LABS: MEAN CORPUSCULAR HEMOGLOBIN 29.9 pg (27.0-33.0); MEAN CORPUSCULAR HGB CONC 33.3 g/dL (32.0-36.0); MEAN CORPUSCULAR VOLUME 89.7 fL (79-99); RED BLOOD CELL COUNT(AUTO) 3.68 MIL/uL (4.00-5.50); RED CELL DISTRIBUTION WIDTH 13.7 % (11.0-15.5); WHITE BLOOD COUNT (AUTO) 8.9 K/uL (4.8-10.8)
[2022-06-29 04:24] LABS: CREATININE 1.2 mg/dL (0.5-1.5); MAGNESIUM 1.8 mg/dL (1.80-2.40); PHOSPHORUS 3.4 mg/dL (2.5-4.9); POTASSIUM 3.1 mmol/L (3.5-5.1)
[2022-06-29] MEDS: ASPIRIN 325MG EC TAB PO SCH (05:16)
[2022-06-29] MEDS: INSULIN HUMULIN R 100 UNIT/ML 3ML SQ SCH ×4 (06:27→20:29)
[2022-06-29 08:00] VITALS: BP 134/92
[2022-06-29] MEDS ORDERED: MAGNESIUM 2GM PREMIX 50ML 50 ML IV ONE (08:01)
[2022-06-29] MEDS ORDERED: KCL 20 MEQ ERTAB PO ONE (08:01)
[2022-06-29] MEDS: MAGNESIUM 2GM PREMIX 50ML 50 ML IV PRN (08:17)
[2022-06-29] MEDS: ENOXAPARIN SODIUM 80 MG/0.8 ML SQ SCH (08:18)
[2022-06-29] MEDS: KCL 20 MEQ ERTAB PO PRN ×3 (08:19→16:59)
[2022-06-29] MEDS: CEFTRIAXONE 2GM VIAL IVP SCH (08:23)
[2022-06-29] MEDS ORDERED: LIDOCAINE HCL-MPF 1% 2ML VIAL IV PRN (08:30)
[2022-06-29] MEDS ORDERED: POTASSIUM CHLORIDE 10% ELIXIR 20 MEQ/15 ML UDCUP PO PRN (08:30)
[2022-06-29] MEDS ORDERED: POTASSIUM CHLORIDE 20MEQ/100ML 100 ML IV PRN (08:30)
[2022-06-29] MEDS ORDERED: ENOXAPARIN SODIUM 40 MG/0.4 ML SYRINGE SQ SCH (09:00)
[2022-06-29 12:00] VITALS: BP 118/63
[2022-06-29 16:00] VITALS: BP 100/66
[2022-06-29] MEDS ORDERED: COMPOUND IV MISC 1 EACH IVSOLN MISC PRN (16:30)
[2022-06-29] MEDS ORDERED: FUROSEMIDE 40MG VIAL IV ONE (16:30)
[2022-06-29 18:56] VITALS: BP 111/66
[2022-06-29] MEDS ORDERED: LEVETIRACETAM 500 MG/5 ML SD VIAL IV SCH (21:00)
[2022-06-29] MEDS ORDERED: LEVETIRACETAM 500 MG in 0.9%NACL 100ML 100 ML IV SCH (21:00)
[2022-06-29] MEDS: LOSARTAN 100 MG TABLET PO SCH (21:26)
[2022-06-29 23:20] VITALS: BP 102/71
[2022-06-30 03:53] VITALS: BP 106/70
[2022-06-30 04:00] LABS: BASOPHILS % (AUTO) 0.4 % (0.0-5.0); EOSINOPHILS % (AUTO) 0.9 % (0.0-8.0); HEMATOCRIT 33.3 % (36-48); LYMPHOCYTES % (AUTO) 25.9 % (21.0-51.0); MEAN CORPUSCULAR HEMOGLOBIN 30.1 pg (27.0-33.0); MONOCYTES % (AUTO) 9.2 % (3.0-13.0); NEUTROPHILS % (AUTO) 63.4 % (40.0-77.0); PLATELET COUNT (AUTO) 168 K/uL (130-400); RED BLOOD CELL COUNT(AUTO) 3.66 MIL/uL (4.00-5.50); WHITE BLOOD COUNT (AUTO) 5.5 K/uL (4.8-10.8)
[2022-06-30 04:15] LABS: ALBUMIN 3.1 g/dL (3.5-5.0); CREATININE 1.4 mg/dL (0.5-1.5); MAGNESIUM 2.2 mg/dL (1.80-2.40); POTASSIUM 3.6 mmol/L (3.5-5.1); TOTAL PROTEIN, SERUM 6.4 g/dL (6.0-8.3)
[2022-06-30] MEDS: INSULIN HUMULIN R 100 UNIT/ML 3ML SQ SCH ×4 (05:45→20:42)
[2022-06-30] MEDS: KCL 20 MEQ ERTAB PO PRN (06:09)
[2022-06-30 06:48] VITALS: BP 120/64
[2022-06-30] MEDS: NIFEDIPINE ER 30 MG TAB PO SCH (09:27)
[2022-06-30] MEDS: ATORVASTATIN 20 MG TABLET PO SCH (09:27)
[2022-06-30] MEDS: CEFTRIAXONE 2GM VIAL IVP SCH (09:27)
[2022-06-30] MEDS: ASPIRIN 325MG EC TAB PO SCH (09:28)
[2022-06-30] MEDS: ENOXAPARIN SODIUM 80 MG/0.8 ML SQ SCH (09:29)
[2022-06-30 12:21] VITALS: BP 120/71
[2022-06-30 16:45] VITALS: BP 113/60
[2022-06-30 20:00] VITALS: BP 118/62
[2022-06-30] MEDS: LOSARTAN 100 MG TABLET PO SCH (21:04)
[2022-07-01] VITALS: BP 121/62
[2022-07-01 04:00] VITALS: BP 116/75
[2022-07-01 04:12] LABS: BASOPHILS % (AUTO) 0.2 % (0.0-5.0); EOSINOPHILS % (AUTO) 1.9 % (0.0-8.0); HEMATOCRIT 32.3 % (36-48); MEAN CORPUSCULAR HGB CONC 32.8 g/dL (32.0-36.0); MEAN CORPUSCULAR VOLUME 91.5 fL (79-99); MONOCYTES % (AUTO) 8.8 % (3.0-13.0); NEUTROPHILS % (AUTO) 64.9 % (40.0-77.0); PLATELET COUNT (AUTO) 160 K/uL (130-400); RED BLOOD CELL COUNT(AUTO) 3.53 MIL/uL (4.00-5.50); RED CELL DISTRIBUTION WIDTH 14.1 % (11.0-15.5); WHITE BLOOD COUNT (AUTO) 5.2 K/uL (4.8-10.8)
[2022-07-01 04:33] LABS: MAGNESIUM 2.2 mg/dL (1.80-2.40); POTASSIUM 4.7 mmol/L (3.5-5.1); TOTAL PROTEIN, SERUM 6.2 g/dL (6.0-8.3)
[2022-07-01 07:28] VITALS: BP 119/60
[2022-07-01] MEDS: INSULIN HUMULIN R 100 UNIT/ML 3ML SQ SCH ×4 (07:30→21:40)
[2022-07-01] MEDS: ENOXAPARIN SODIUM 80 MG/0.8 ML SQ SCH (08:18)
[2022-07-01] MEDS: CEFTRIAXONE 2GM VIAL IVP SCH (08:18)
[2022-07-01] MEDS: ATORVASTATIN 20 MG TABLET PO SCH (08:19)
[2022-07-01] MEDS: NIFEDIPINE ER 30 MG TAB PO SCH (08:19)
[2022-07-01] MEDS: ASPIRIN 325MG EC TAB PO SCH (08:19)
[2022-07-01 12:00] VITALS: BP 112/53
[2022-07-01 16:00] VITALS: BP 115/59
[2022-07-01 20:00] VITALS: BP 131/70
[2022-07-01] MEDS: LOSARTAN 100 MG TABLET PO SCH (21:29)
[2022-07-02] VITALS (10 sets, daily range): BP systolic 121–154; BP diastolic 64–84
[2022-07-02 04:07] LABS: BASOPHILS % (AUTO) 0.2 % (0.0-5.0); EOSINOPHILS % (AUTO) 0.3 % (0.0-8.0); HEMATOCRIT 35.8 % (36-48); LYMPHOCYTES % (AUTO) 11.8 % (21.0-51.0); MEAN CORPUSCULAR HEMOGLOBIN 30.2 pg (27.0-33.0); MEAN CORPUSCULAR HGB CONC 32.7 g/dL (32.0-36.0); MEAN CORPUSCULAR VOLUME 92.5 fL (79-99); MONOCYTES % (AUTO) 5.6 % (3.0-13.0); NEUTROPHILS % (AUTO) 81.5 % (40.0-77.0); PLATELET COUNT (AUTO) 169 K/uL (130-400); RED BLOOD CELL COUNT(AUTO) 3.87 MIL/uL (4.00-5.50); RED CELL DISTRIBUTION WIDTH 13.9 % (11.0-15.5); WHITE BLOOD COUNT (AUTO) 6.6 K/uL (4.8-10.8)
[2022-07-02 04:34] LABS: ALBUMIN 3.4 g/dL (3.5-5.0); MAGNESIUM 1.9 mg/dL (1.80-2.40); TOTAL PROTEIN, SERUM 6.9 g/dL (6.0-8.3)
[2022-07-02] MEDS: INSULIN HUMULIN R 100 UNIT/ML 3ML SQ SCH ×4 (06:19→20:43)
[2022-07-02] MEDS: CEFTRIAXONE 2GM VIAL IVP SCH (09:08)
[2022-07-02] MEDS: ATORVASTATIN 20 MG TABLET PO SCH (09:08)
[2022-07-02] MEDS: ASPIRIN 325MG EC TAB PO SCH (09:08)
[2022-07-02] MEDS: NIFEDIPINE ER 30 MG TAB PO SCH (09:09)
[2022-07-02] MEDS: ENOXAPARIN SODIUM 80 MG/0.8 ML SQ SCH (09:09)
[2022-07-02] MEDS ORDERED: AMIODARONE 900MG VIAL 150 MG in DEXTROSE 5%-WATER 100 ML IV SCH (15:00)
[2022-07-02] MEDS ORDERED: AMIODARONE 900MG VIAL 360 MG in DEXTROSE 5%-WATER 200 ML IV SCH (15:00)
[2022-07-02 15:27] LABS: INR 1.02 (0.85-1.15); PROTHROMBIN TIME 11.1 SEC (9.6-11.6)
[2022-07-02] MEDS: AMIODARONE 900MG VIAL 540 MG in DEXTROSE 5%-WATER 300 ML IV SCH ×2 (16:36→22:35)
[2022-07-02] MEDS: LOSARTAN 100 MG TABLET PO SCH (20:07)
[2022-07-02] MEDS: METOPROLOL TARTRATE 25 MG TAB PO SCH (20:07)
[2022-07-02] MEDS ORDERED: APIXABAN 5 MG TABLET PO SCH (21:00)
[2022-07-03 03:50] VITALS: BP 131/59
[2022-07-03 04:17] LABS: BASOPHILS % (AUTO) 0.6 % (0.0-5.0); EOSINOPHILS % (AUTO) 1.8 % (0.0-8.0); HEMATOCRIT 29.9 % (36-48); LYMPHOCYTES % (AUTO) 20.5 % (21.0-51.0); MEAN CORPUSCULAR HEMOGLOBIN 30.2 pg (27.0-33.0); MEAN CORPUSCULAR HGB CONC 33.1 g/dL (32.0-36.0); MEAN CORPUSCULAR VOLUME 91.2 fL (79-99); MONOCYTES % (AUTO) 7.4 % (3.0-13.0); NEUTROPHILS % (AUTO) 69.3 % (40.0-77.0); PLATELET COUNT (AUTO) 150 K/uL (130-400); RED BLOOD CELL COUNT(AUTO) 3.28 MIL/uL (4.00-5.50); RED CELL DISTRIBUTION WIDTH 13.9 % (11.0-15.5)
[2022-07-03 04:42] LABS: ALBUMIN 2.9 g/dL (3.5-5.0); CREATININE 0.9 mg/dL (0.5-1.5); MAGNESIUM 1.7 mg/dL (1.80-2.40); POTASSIUM 3.4 mmol/L (3.5-5.1); TOTAL PROTEIN, SERUM 6.1 g/dL (6.0-8.3)
[2022-07-03] MEDS: KCL 20 MEQ ERTAB PO PRN ×2 (05:34→08:51)
[2022-07-03] MEDS: MAGNESIUM 2GM PREMIX 50ML 50 ML IV PRN (05:34)
[2022-07-03] MEDS: INSULIN HUMULIN R 100 UNIT/ML 3ML SQ SCH ×3 (05:35→16:30)
[2022-07-03 07:00] VITALS: BP 145/64
[2022-07-03] MEDS: CEFTRIAXONE 2GM VIAL IVP SCH (08:50)
[2022-07-03] MEDS: ATORVASTATIN 20 MG TABLET PO SCH (08:51)
[2022-07-03] MEDS: ASPIRIN 325MG EC TAB PO SCH (08:51)
[2022-07-03] MEDS: ENOXAPARIN SODIUM 80 MG/0.8 ML SQ SCH (08:51)
[2022-07-03] MEDS: METOPROLOL TARTRATE 25 MG TAB PO SCH (08:51)
[2022-07-03 11:00] VITALS: BP 133/66
[2022-07-03] MEDS ORDERED: METO25 PO (14:18)
[2022-07-03] MEDS ORDERED: AMIO200T68 PO (14:18)
[2022-07-03] MEDS ORDERED: APIX5TAB PO (14:18)
[2022-07-03] MEDS ORDERED: CIPR500S5 PO (15:49)
[2022-07-03 16:00] VITALS: BP 143/69
== END 2022-07-03 17:30 | disposition home or self-care (01) | DRG 871 ==
LOC: EDH 17:24 → EDHIP 20:56 → OBSVTOIN 20:56 → 2AH 23:42
PROVIDERS: ADMIT Internal Medicine; ATTEND Internal Medicine
PROC: 4A00X4Z Measurement of Central Nervous Electrical Activity, External Approach (ICD-10-PCS; principal; 2022-06-30)
DX: A41.9 Sepsis, unspecified organism (principal); G93.41 Metabolic encephalopathy; I50.33 Acute on chronic diastolic (congestive) heart failure; I21.A1 Myocardial infarction type 2; I48.92 Unspecified atrial flutter; N17.9 Acute kidney failure, unspecified; I48.20 Chronic atrial fibrillation, unspecified; I16.1 Hypertensive emergency; I13.0 Hypertensive heart and chronic kidney disease with heart failure and stage 1 through stage 4 chronic kidney disease, or unspecified chronic kidney disease; N13.6 Pyonephrosis; D63.1 Anemia in chronic kidney disease; I48.0 Paroxysmal atrial fibrillation; I27.20 Pulmonary hypertension, unspecified; I25.10 Atherosclerotic heart disease of native coronary artery without angina pectoris; E11.22 Type 2 diabetes mellitus with diabetic chronic kidney disease; E11.42 Type 2 diabetes mellitus with diabetic polyneuropathy; E11.51 Type 2 diabetes mellitus with diabetic peripheral angiopathy without gangrene; E11.65 Type 2 diabetes mellitus with hyperglycemia; E78.2 Mixed hyperlipidemia; N18.30 Chronic kidney disease, stage 3 unspecified; I95.1 Orthostatic hypotension; W18.39XA Other fall on same level, initial encounter; Z95.1 Presence of aortocoronary bypass graft; Z79.899 Other long term (current) drug therapy; Z79.01 Long term (current) use of anticoagulants; I69.320 Aphasia following cerebral infarction; I25.2 Old myocardial infarction; Y93.89 Activity, other specified; Y92.89 Other specified places as the place of occurrence of the external cause; Y99.8 Other external cause status
CPT/HCPCS: 36415; 70450; 70544; 70551; 71045; 72125; 76770; 80048; 80053; 81001; 82140; 82550; 82945; 82948; 83735; 83874; 83880; 84100; 84157; 84484; 85025; 85027; 85610; 87071; 87088; 87147; 87205; 89051; 93005; 93306; 93356; 95819; G0378; J0282; J0696; J1650; J1815; J1940; J1953; J3475; J3490; J7060

== ENCOUNTER 2023-04-06 14:10 | Emergency (ER) | payer OTHER ==
[~2023-04-06] VITALS: Ht 162.6 cm; Wt 54.4 kg
[~2023-04-06 14:10] MED LIST changes: +AMIO200T68 PO; +APIX5TAB PO; +ATOR20TA65 PO; -AZIT500T4 PO; +CIPR500S5 PO; -DEXA6TAB PO; -HYDR-4154 PO; +LOSA100T59 PO; +METO25 PO; -NIFE90TA65 PO; -WARF-57 PO
[2023-04-06 14:49] LABS: BASOPHILS % (AUTO) 0.1 % (0.0-5.0); EOSINOPHILS % (AUTO) 0.5 % (0.0-8.0); HEMATOCRIT 34.8 % (36-48); LYMPHOCYTES % (AUTO) 13.1 % (21.0-51.0); MEAN CORPUSCULAR HEMOGLOBIN 29.4 pg (27.0-33.0); MEAN CORPUSCULAR HGB CONC 32.8 g/dL (32.0-36.0); MEAN CORPUSCULAR VOLUME 89.7 fL (79-99); MONOCYTES % (AUTO) 5.2 % (3.0-13.0); NEUTROPHILS % (AUTO) 80.3 % (40.0-77.0); PLATELET COUNT (AUTO) 222 K/uL (130-400); RED BLOOD CELL COUNT(AUTO) 3.88 MIL/uL (4.00-5.50); RED CELL DISTRIBUTION WIDTH 13.2 % (11.0-15.5); WHITE BLOOD COUNT (AUTO) 7.3 K/uL (4.8-10.8)
[2023-04-06 14:59] LABS: POTASSIUM 3.7 mmol/L (3.5-5.1)
[2023-04-06] MEDS ORDERED: ONDANSETRON 4MG INJ IVP ONE (15:00)
[2023-04-06] MEDS ORDERED: MORPHINE 4 MG SYG IVP ONE (15:00)
[2023-04-06 15:04] LABS: ALBUMIN 3.6 g/dL (3.5-5.0); TOTAL PROTEIN, SERUM 7.1 g/dL (6.0-8.3)
[2023-04-06] MEDS ORDERED: HYDRALAZINE 20MG/ML VIAL IM ONE (17:30)
[2023-04-06 17:39] VITALS: BP 172/60
== END 2023-04-06 18:14 | disposition home or self-care (01) ==
LOC: EDH 14:10
DX: S30.0XXA Contusion of lower back and pelvis, initial encounter (principal); I16.0 Hypertensive urgency; I10 Essential (primary) hypertension; E78.00 Pure hypercholesterolemia, unspecified; I25.2 Old myocardial infarction; E11.9 Type 2 diabetes mellitus without complications; Z79.899 Other long term (current) drug therapy; W18.09XA Striking against other object with subsequent fall, initial encounter; Y93.89 Activity, other specified; Y92.89 Other specified places as the place of occurrence of the external cause; Y99.8 Other external cause status
CPT/HCPCS: 99284; 96374; 96375; 80053; 85025; 36415; 73521; 72100; 96372; J0360; J2405; J2270

== ENCOUNTER → 2024-05-27 | Outpatient (CLI) | payer OTHER ==
[2024-05-27 12:18] LABS: BASOPHILS # (AUTO) 0.03 K/uL (0.00-0.20); BASOPHILS % (AUTO) 0.5 % (0.0-5.0); EOSINOPHILS # (AUTO) 0.15 K/uL (0.00-0.70); EOSINOPHILS % (AUTO) 2.4 % (0.0-8.0); HEMATOCRIT 35.9 % (36-48); IMMATURE GRANULOCYTE ABSOLUTE 0.01 K/uL (0-1); LYMPHOCYTES # (AUTO) 1.1 K/uL (1.0-4.8); LYMPHOCYTES % (AUTO) 17.6 % (21.0-51.0); MEAN CORPUSCULAR HGB CONC 30.1 g/dL (32.0-36.0); MEAN CORPUSCULAR VOLUME 86.3 fL (79-99); MONOCYTES # (AUTO) 0.8 K/uL (0.1-1.0); MONOCYTES % (AUTO) 12.7 % (3.0-13.0); NEUTROPHILS # (AUTO) 4.1 K/uL (1.8-7.7); NEUTROPHILS % (AUTO) 66.6 % (40.0-77.0); PLATELET COUNT (AUTO) 150 K/uL (130-400); RED BLOOD CELL COUNT(AUTO) 4.16 MIL/uL (4.00-5.50); RED CELL DISTRIBUTION WIDTH 16.4 % (11.0-15.5); WHITE BLOOD COUNT (AUTO) 6.1 K/uL (4.8-10.8)
[2024-05-27 12:44] LABS: ALBUMIN 2.9 g/dL (3.5-5.0); BILIRUBIN,DIRECT 0.8 mg/dL (0.0-0.3); BILIRUBIN,TOTAL 1.6 mg/dL (0.2-1.0); CREATININE 1.6 mg/dL (0.5-1.0); POTASSIUM 3.2 mmol/L (3.5-5.1); THYROID STIMULATING HORMONE 11.15 uIU/mL (0.36-3.74); TOTAL PROTEIN, SERUM 7.3 g/dL (6.0-8.3)
[2024-05-27 12:57] LABS: B-TYPE NATRIURETIC PEPTIDE 2250 pg/mL (0-100)
== END | disposition home or self-care (01) ==
LOC: LAB 10:30
PROVIDERS: ATTEND Internal Medicine Cardiovascular Disease
DX: I10 Essential (primary) hypertension (principal); E78.5 Hyperlipidemia, unspecified; I48.91 Unspecified atrial fibrillation
CPT/HCPCS: 36415; 80048; 80076; 83880; 84443; 85025

== ENCOUNTER 2024-05-29 19:37 | Emergency (ER) | payer OTHER ==
[~2024-05-29] VITALS: Ht 157.5 cm; Wt 61.2 kg
[2024-05-29 20:40] LABS: BASOPHILS # (AUTO) 0.02 K/uL (0.00-0.20); BASOPHILS % (AUTO) 0.4 % (0.0-5.0); EOSINOPHILS # (AUTO) 0.03 K/uL (0.00-0.70); EOSINOPHILS % (AUTO) 0.5 % (0.0-8.0); HEMATOCRIT 37.5 % (36-48); IMMATURE GRANULOCYTE ABSOLUTE 0.02 K/uL (0-1); LYMPHOCYTES # (AUTO) 1.5 K/uL (1.0-4.8); LYMPHOCYTES % (AUTO) 27.2 % (21.0-51.0); MEAN CORPUSCULAR HEMOGLOBIN 26.3 pg (27.0-33.0); MEAN CORPUSCULAR HGB CONC 31.7 g/dL (32.0-36.0); MONOCYTES # (AUTO) 0.7 K/uL (0.1-1.0); NEUTROPHILS # (AUTO) 3.3 K/uL (1.8-7.7); NEUTROPHILS % (AUTO) 59.5 % (40.0-77.0); PLATELET COUNT (AUTO) 169 K/uL (130-400); RED BLOOD CELL COUNT(AUTO) 4.52 MIL/uL (4.00-5.50); RED CELL DISTRIBUTION WIDTH 16.6 % (11.0-15.5); WHITE BLOOD COUNT (AUTO) 5.6 K/uL (4.8-10.8)
[2024-05-29 20:50] LABS: CREATININE 2.3 mg/dL (0.5-1.0); POTASSIUM 4.2 mmol/L (3.5-5.1)
[2024-05-30] MEDS: LIDOCAINE HCL 2% VISCOUS 15 ML UDCUP PO ONE (00:46)
[2024-05-30] MEDS: MAG/ALUM/SIMETH 30 ML UDCUP PO ONE (00:46)
[2024-05-30 04:32] VITALS: BP 122/74; PULSE 76; RESP 20; O2SAT 99
== END 2024-05-30 05:29 | disposition home or self-care (01) ==
LOC: EDH 19:37
DX: G92.8 Other toxic encephalopathy (principal); M54.50 Low back pain, unspecified; I11.0 Hypertensive heart disease with heart failure; I50.9 Heart failure, unspecified; E78.00 Pure hypercholesterolemia, unspecified; I25.2 Old myocardial infarction
CPT/HCPCS: 36415; 80048; 82140; 83880; 84484; 85025; 93005

== ENCOUNTER → 2024-06-07 | Outpatient (CLI) | payer OTHER | END | disposition home or self-care (01) | LOC: RAH 13:42 | PROVIDERS: ATTEND Internal Medicine Cardiovascular Disease | DX: I51.7 Cardiomegaly (principal); K80.20 Calculus of gallbladder without cholecystitis without obstruction; R07.9 Chest pain, unspecified; J90 Pleural effusion, not elsewhere classified; M48.54XA Collapsed vertebra, not elsewhere classified, thoracic region, initial encounter for fracture; Z91.81 History of falling | CPT/HCPCS: 70450; 71250 ==

== ENCOUNTER → 2024-06-10 | Outpatient (CLI) | payer OTHER ==
[2024-06-10 10:04] LABS: AMMONIA < 10 umol/L (11-32); CHLORIDE 102 mmol/L (101-111); CREATININE 1.4 mg/dL (0.5-1.0); GLOMERULAR FILTR. RATE CALC 39 mL/min (>90); GLUCOSE,RANDOM 190 mg/dL (70-105); SODIUM SERUM 145 mmol/L (136-145); UREA NITROGEN, BLOOD 32 mg/dL (7-18)
[2024-06-10 10:05] LABS: POTASSIUM 2.9 mmol/L (3.5-5.1)
[2024-06-10 10:07] LABS: CARBON DIOXIDE 42 mmol/L (21-32)
== END | disposition home or self-care (01) ==
LOC: LAB 09:10
PROVIDERS: ATTEND Internal Medicine Cardiovascular Disease
DX: E11.22 Type 2 diabetes mellitus with diabetic chronic kidney disease (principal); I25.2 Old myocardial infarction; I48.0 Paroxysmal atrial fibrillation; Z95.1 Presence of aortocoronary bypass graft; N18.9 Chronic kidney disease, unspecified
CPT/HCPCS: 36415; 80048; 82140

== ENCOUNTER → 2024-06-20 | Outpatient (CLI) | payer OTHER | END | disposition home or self-care (01) | LOC: LAB 06-14 09:13 | PROVIDERS: ATTEND Internal Medicine Cardiovascular Disease | DX: I12.9 Hypertensive chronic kidney disease with stage 1 through stage 4 chronic kidney disease, or unspecified chronic kidney disease (principal); E11.22 Type 2 diabetes mellitus with diabetic chronic kidney disease; N18.9 Chronic kidney disease, unspecified; I25.2 Old myocardial infarction; I48.0 Paroxysmal atrial fibrillation; Z95.1 Presence of aortocoronary bypass graft | CPT/HCPCS: 36415; 84132 ==

== ENCOUNTER → 2024-06-24 | Outpatient (CLI) | payer OTHER ==
[2024-06-24 12:22] LABS: CREATININE 1.5 mg/dL (0.5-1.0); POTASSIUM 4.5 mmol/L (3.5-5.1)
== END | disposition home or self-care (01) ==
LOC: LAB 10:42
PROVIDERS: ATTEND Internal Medicine Cardiovascular Disease
DX: I10 Essential (primary) hypertension (principal)
CPT/HCPCS: 36415; 80048

== ENCOUNTER → 2024-07-01 | Outpatient (CLI) | payer OTHER ==
[2024-07-01 12:34] LABS: CREATININE 1.3 mg/dL (0.5-1.0); POTASSIUM 4.1 mmol/L (3.5-5.1)
== END | disposition home or self-care (01) ==
LOC: LAB 09:08
PROVIDERS: ATTEND Internal Medicine Cardiovascular Disease
DX: I10 Essential (primary) hypertension (principal)
CPT/HCPCS: 36415; 80048

== ENCOUNTER → 2024-07-08 | Outpatient (CLI) | payer OTHER ==
[2024-07-08 12:52] LABS: CREATININE 1.1 mg/dL (0.5-1.0); POTASSIUM 4.2 mmol/L (3.5-5.1)
== END | disposition home or self-care (01) ==
LOC: LAB 09:33
PROVIDERS: ATTEND Internal Medicine Cardiovascular Disease
DX: I10 Essential (primary) hypertension (principal)
CPT/HCPCS: 36415; 80048

== ENCOUNTER → 2024-09-26 | Outpatient (CLI) | payer OTHER ==
--- NOTE | 2024-09-27 08:52 | HMCSR ---
APPROVED REPORT Laterality: Bilateral Surgery/Intervention Endarterectomy: right Date: 2013 Doppler Spectral Velocity Analysis PSV / EDVPSV / EDV ECA (R) 88 / cm/sECA (L) 147 / cm/s dICA (R) 63 / 27 cm/sdICA (L) 178 / 51 cm/s Alfonzo (R) 81 / 33 cm/smICA (L) 180 / 36 cm/s pICA (R) 52 / 11 cm/spICA (L) 182 / 36 cm/s dCCA (R) 48 / 11 cm/sdCCA (L) 85 / 19 cm/s mCCA (R) 57 / 10 cm/smCCA (L) 85 / 21 cm/s pCCA (R) 39 / 8 cm/spCCA (L) 75 / 16 cm/s Vert (R) 96 / cm/sVert (L) 95 / cm/s Subl. (R) 145 / cm/sSubl. (L) 140 / cm/s ICA/CCA 1.42ICA/CCA 2.14 Technologist Impression Mild to moderate heterogenous plaque noted in the bilateral carotid arteries. There is evidence of 50-69% stenosis in the left internal carotid artery. The bilateral vertebral arteries reflect antegrade flow. Conclusion As above. Conclusion As above.
== END | disposition home or self-care (01) ==
LOC: SHCH 09:29
PROVIDERS: ATTEND Internal Medicine Cardiovascular Disease
DX: I65.23 Occlusion and stenosis of bilateral carotid arteries (principal); I25.10 Atherosclerotic heart disease of native coronary artery without angina pectoris
CPT/HCPCS: 93880